=== PATIENT | male | born 2000 | race American Indian/Alaskan Native ===

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

== ENCOUNTER 2022-05-27 20:08 | Emergency (ER) | payer MEDICAID ==
[2022-05-27 21:19] VITALS: BP 121/72
== END 2022-05-28 03:54 | disposition left against medical advice (07) ==
LOC: ED 20:08
DX: R51.9 Headache, unspecified (principal); Z53.21 Procedure and treatment not carried out due to patient leaving prior to being seen by health care provider